=== PATIENT | female | born 1985 | race American Indian/Alaskan Native ===

== ENCOUNTER 2017-01-14 11:32 | Emergency (ER) | payer SELFPAY ==
[2017-01-14 11:42] VITALS: BP 120/87
[2017-01-14] MEDS ORDERED: TORADOL IM ONE (11:54)
--- NOTE | 2017-01-14 12:53 | Emergency Department Report ---
Entered by SHRUTHI CHERY, acting as scribe for DAYANA HENRY PA. ED ENT HPI - General Chief complaint: Dental/Oral Stated complaint: TOOTH EXTRACTION INFECTED Time Seen by Provider: 01/14/17 11:47 Source: patient Mode of arrival: Ambulatory Limitations: No Limitations - History of Present Illness Initial comments: 31 year old female with no significant PMHx presents to the ED c/o tooth #20 pain that began 5 days ago. Patient reports having tooth #20 extracted at a [facility] in [place] over spring. Rates pain a 10/10 in severity. Associated symptoms include mouth pain, but she denies headache, ear pain, numbness, tingling, and gum edema. Reports taking Advil at home with no relief. Uses tobacco products daily and consumes EtOH occasionally. NKDA. complaint: tooth pain (#20 open site (pulled tooth site)) Onset/Timin -: Gradual, days(s) Location: tooth # (20) Severity: moderate Severity scale (0 -10): 10 Quality: aching Consistency: constant Improves with: none Worsens with: none (took Advil with no relief) Context- Dental: other (tooth #20 pulled 1 month ago) Associated Symptoms: toothache (#20 open site (tooth extracted)). denies: fever , gum swelling, sore throat, other (ar pain, headache, chills, nausea, and vomiting) - Related Data Previous Rx's Medication Instructions Recorded Last Taken Type Acetaminophen/Codeine [Tylenol 1 tab PO Q6H PRN #20 tab 01/14/17 Unknown Rx /Codeine # 3 tab] Amoxicillin [Amoxicillin TAB] 875 mg PO BID #20 tablet 01/14/17 Unknown Rx Allergies Allergy/AdvReac Type Severity Reaction Status Date / Time No Known Allergies Allergy Unverified 01/14/17 11:38 ED Dental HPI - General Chief complaint: Dental/Oral Stated complaint: TOOTH EXTRACTION INFECTED Time Seen by Provider: 01/14/17 11:47 Source: patient Mode of arrival: Ambulatory Limitations: No Limitations - History of Present Illness MD complaint: tooth pain (#20, open site where #20 was extracted) Onset/Timin -: Gradual, days(s) Severity: moderate Quality: aching Consistency: constant Improves with: none Worsens with: eating, chewing, movement, other (took Advil with no relief) Context- Dental: other (tooth #20 pulled 1 month ago) Dental Associated Symptons: No: Headache, Earache, Sore Throat, Gum Swelling, Fever - Related Data Previous Rx's Medication Instructions Recorded Last Taken Type Acetaminophen/Codeine [Tylenol 1 tab PO Q6H PRN #20 tab 01/14/17 Unknown Rx /Codeine # 3 tab] Amoxicillin [Amoxicillin TAB] 875 mg PO BID #20 tablet 01/14/17 Unknown Rx Allergies Allergy/AdvReac Type Severity Reaction Status Date / Time No Known Allergies Allergy Unverified 01/14/17 11:38 ED Review of Systems Comment: All other systems reviewed and negative Constitutional: denies: chills, fever, other (tingling) ENT: dental pain (tooth #20 open site where tooth was pulled). denies: ear pain , throat pain, congestion, other (gum swelling, but reports mouth pain due to # 20 tooth pain) Respiratory: no symptoms reported Cardiovascular: denies: chest pain, palpitations, edema, syncope Gastrointestinal: denies: abdominal pain, nausea, vomiting Musculoskeletal: denies: back pain, joint swelling, arthralgia Skin: denies: rash Neurological: denies: headache, numbness ED Past Medical Hx - Past Medical History Previous Medical History?: No - Surgical History Past Surgical History?: No - Family History Family history: hypertension - Social History Smoking Status: Current Every Day Smoker Substance Use Type: Alcohol, Prescribed - Medications Home Medications: Home Medications Medication Instructions Recorded Confirmed Last Taken Type Acetaminophen/Codeine [Tylenol 1 tab PO Q6H PRN #20 tab 01/14/17 Unknown Rx /Codeine # 3 tab] Amoxicillin [Amoxicillin TAB] 875 mg PO BID #20 tablet 01/14/17 Unknown Rx ED Physical Exam - General Limitations: No Limitations General appearance: alert, in no apparent distress - Head Head exam: Present: atraumatic, normocephalic - Eye Eye exam: Present: normal appearance, EOMI Pupils: Present: normal accommodation - ENT ENT exam: Present: normal exam, mucous membranes moist, TM's normal bilaterally (bilateral TM's are pearly pressley), normal external ear exam - Expanded ENT Exam Expanded Ear exam: Present: normal external inspection Mouth exam: Present: normal external inspection. Absent: drooling, trismus, muffled voice, tongue normal, tongue elevation, other (dental abscess) Teeth exam: Present: normal inspection, dental caries (left upper in the back), dental tenderness # (20, open site where #20 was removed). Absent: fractured tooth #, gingival enlargement Throat exam: Positive: normal inspection. Negative: tonsillar erythema, tonsillomegaly, tonsillar exudate, R peritonsillar mass, L peritonsillar mass - Neck Neck exam: Present: normal inspection (supple), full ROM. Absent: tenderness, lymphadenopathy - Respiratory Respiratory exam: Present: normal lung sounds bilaterally. Absent: respiratory distress, wheezes, rales, rhonchi, chest wall tenderness - Cardiovascular Cardiovascular Exam: Present: normal rhythm, bradycardia, normal heart sounds, other (S1/S2). Absent: systolic murmur, diastolic murmur, rubs, gallop - GI/Abdominal GI/Abdominal exam: Present: soft, normal bowel sounds. Absent: distended, tenderness, guarding, rebound, rigid - Extremities Exam Extremities exam: Present: normal inspection, full ROM, normal capillary refill. Absent: tenderness, pedal edema, joint swelling, calf tenderness - Back Exam Back exam: Present: normal inspection, full ROM. Absent: tenderness - Neurological Exam Neurological exam: Present: alert, oriented X3, normal gait, reflexes normal. Absent: motor sensory deficit - Psychiatric Psychiatric exam: Present: normal affect, normal mood - Skin Skin exam: Present: warm, dry, intact. Absent: rash, erythema, abrasion, other (gum edema) ED Course Vital Signs 01/14/17 11:38 Temperature 98 F Pulse Rate 57 L Respiratory 20 Rate Blood Pressure 120/87 O2 Sat by Pulse 100 Oximetry - Reevaluation(s) Reevaluation #1: 01/14/17 12:45 01/14/17 12:48 Given Toradol 60 mg IM and emergency room ED Medical Decision Making - Medical Decision Making ED course: Patient with diagnosis of toothache, dental caries status post tooth #20.. I discussed the patient that she will need to follow back up with her dentist when she goes back to [place]. Patient given Toradol 60 mg IM for toothache. Discussed with her that I'll place her on amoxicillin and Tylenol No. 3 and she will need to follow-up with her dentist back in [facility]. Was understanding of discharge instruction. ED Disposition Clinical Impression: Dental caries, Tooth ache Status post tooth extraction Qualifiers: Tooth loss class: unspecified tooth loss Qualified Code(s): K08.409 - Partial loss of teeth, unspecified cause, unspecified class Disposition: DISCHARGED TO HOME OR SELFCARE Is pt being admited?: No Does the pt Need Aspirin: No Condition: Stable Instructions: Dental Caries (ED), Toothache (ED) Additional Instructions: Follow up with your dentist when you return to [place] for follow-up tooth extraction. Take Antibiotic as prescribed. Prescriptions: Acetaminophen/Codeine [Tylenol /Codeine # 3 tab] 1 tab PO Q6H PRN #20 tab PRN Reason: Toothache Amoxicillin [Amoxicillin TAB] 875 mg PO BID #20 tablet Referrals: Your, Dentist in [place] [Other] - 3-5 Days [facility] [Outside] - 3-5 Days Forms: Work/School Release Form(ED) This documentation as recorded by the MIRI tsai JASMINE,accurately reflects the service I personally performed and the decisions made by ,DAYANA HENRY PA.
== END 2017-01-14 13:00 | disposition home or self-care (01) ==
LOC: ED 11:32
DX: K02.9 Dental caries, unspecified (principal); K08.409 Partial loss of teeth, unspecified cause, unspecified class; F17.200 Nicotine dependence, unspecified, uncomplicated
CPT/HCPCS: 96372; 99282; J1885

== ENCOUNTER 2017-01-16 10:44 | Emergency (ER) | payer SELFPAY ==
[2017-01-16 11:27] VITALS: BP 139/90
--- NOTE | 2017-01-16 11:59 | Emergency Department Report ---
Entered by JARED MANLEY, acting as scribe for RAOUL MEZA NP. Chief Complaint: Dental/Oral Stated Complaint: TOOTH PAIN/NAUSEA Time Seen by Provider: 01/16/17 11:23 - HPI History of Present Illness: 31 y/o female present c/o 03/10, throbbing, intermittent left lower tooth pain that she was treated for 2 days ago. Medication given makes her vomit and puts her to sleep but does not alleviate any of the pain. No fever or diarrhea. LMP . PT concerned for - ROS Review of Systems: +vomit -fever -diarrhea + yeast infection - Exam Vital Signs: Vital Signs 01/16/17 11:23 Temperature 98.4 F Pulse Rate 57 L Respiratory 16 Rate Blood Pressure 139/90 O2 Sat by Pulse 100 Oximetry Physical Exam: PT looks well, non toxic No active vomiting PT with pain at the site of Left lower molar extraction. no abscess noted. MSE screening note: Focused history and physical exam performed. Due to findings the following was ordered: labs ED Disposition for MSE Condition: Stable This documentation as recorded by the scribe,JARED MANLEY,accurately reflects the service I personally performed and the decisions made by ,RAOUL MEZA , RN FACULTY.
[2017-01-16] MEDS ORDERED: MOTRIN PO ONE (12:24)
--- NOTE | 2017-01-16 12:26 | Emergency Department Report ---
ED ENT HPI - General Chief complaint: Dental/Oral Stated complaint: TOOTH PAIN/NAUSEA Time Seen by Provider: 01/16/17 11:23 Source: patient Mode of arrival: Ambulatory Limitations: No Limitations - History of Present Illness Initial comments: 31-year-old -[place] female comes in for toothache. Patient reports that she was seen here on the for toothache she did have the tooth pulled last week now she's complains of toothache that started any better and vomiting with medication. Patient is placed on Tylenol No. 3 and amoxicillin 875 mg for infection. Patient reports that amoxicillin has upset her stomach but she reports after eating it seemed to do much better. She feels that the Tylenol with Codeine is not really resolving her pain as much as she was hoping. She took the Tylenol with codeine she was having vomiting and increased sleepiness. MD complaint: tooth pain Location: tooth # (18) Severity: moderate Severity scale (0 -10): 6 Quality: aching, sharp Consistency: constant Improves with: none Worsens with: none Associated Symptoms: gum swelling - Related Data Previous Rx's Medication Instructions Recorded Last Taken Type Amoxicillin [Amoxicillin TAB] 875 mg PO BID #20 tablet 01/14/17 Unknown Rx Ibuprofen [Motrin 800 MG tab] 800 mg PO Q8HR #30 tablet 01/16/17 Unknown Rx Allergies Allergy/AdvReac Type Severity Reaction Status Date / Time No Known Allergies Allergy Verified 01/16/17 11:28 ED Dental HPI - General Chief complaint: Dental/Oral Stated complaint: TOOTH PAIN/NAUSEA Time Seen by Provider: 01/16/17 11:23 Source: patient Mode of arrival: Ambulatory Limitations: No Limitations - Related Data Previous Rx's Medication Instructions Recorded Last Taken Type Amoxicillin [Amoxicillin TAB] 875 mg PO BID #20 tablet 01/14/17 Unknown Rx Ibuprofen [Motrin 800 MG tab] 800 mg PO Q8HR #30 tablet 01/16/17 Unknown Rx Allergies Allergy/AdvReac Type Severity Reaction Status Date / Time No Known Allergies Allergy Verified 01/16/17 11:28 ED Review of Systems ROS: Stated complaint: TOOTH PAIN/NAUSEA Other details as noted in HPI Constitutional: denies: chills, fever Eyes: denies: eye pain, eye discharge, vision change ENT: dental pain Respiratory: denies: cough, shortness of breath, wheezing Cardiovascular: denies: chest pain, palpitations Gastrointestinal: vomiting ED Past Medical Hx - Past Medical History Previous Medical History?: No Additional medical history: vaginal delivery x 2 - Surgical History Past Surgical History?: No - Social History Smoking Status: Former Smoker Substance Use Type: None - Medications Home Medications: Home Medications Medication Instructions Recorded Confirmed Last Taken Type Amoxicillin [Amoxicillin TAB] 875 mg PO BID #20 tablet 01/14/17 Unknown Rx Ibuprofen [Motrin 800 MG tab] 800 mg PO Q8HR #30 tablet 01/16/17 Unknown Rx ED Physical Exam - General Limitations: No Limitations General appearance: alert - Head Head exam: Present: atraumatic - Eye Eye exam: Present: normal appearance Pupils: Present: normal accommodation - ENT ENT exam: Present: mucous membranes moist - Expanded ENT Exam Expanded Teeth exam: Present: gingival enlargement - Neck Neck exam: Present: normal inspection, full ROM. Absent: lymphadenopathy ED Course Vital Signs 01/16/17 11:23 Temperature 98.4 F Pulse Rate 57 L Respiratory 16 Rate Blood Pressure 139/90 O2 Sat by Pulse 100 Oximetry ED Medical Decision Making - Medical Decision Making I waited by this provider fast track. Discussed the patient to continue with the amoxicillin as prescribed. Discontinue the Tylenol No. 3 I will give her prescription for ibuprofen 800 mg 1 tablet by mouth 3 times a day when necessary with food. Patient verbalized understanding. Critical care attestation.: If time is entered above; I have spent that time in minutes in the direct care of this critically ill patient, excluding procedure time. ED Disposition Clinical Impression: Pain in lower jaw Status post tooth extraction Qualifiers: Tooth loss class: unspecified tooth loss Qualified Code(s): K08.409 - Partial loss of teeth, unspecified cause, unspecified class Disposition: DISCHARGED TO HOME OR SELFCARE Is pt being admited?: No Does the pt Need Aspirin: No Condition: Stable Instructions: Toothache (ED) Additional Instructions: Please continue with the antibiotics as prescribed. Please discontinue the Tylenol No. 3 since is given you an adverse reaction. Please take the Motrin 800 mg one tablet by mouth every 8 hours as needed for pain highly recommend to take this with food. Please follow-up with dentist. Prescriptions: Ibuprofen [Motrin 800 MG tab] 800 mg PO Q8HR #30 tablet Referrals: PRIMARY CARE, [Primary Care Provider] - 3-5 Days Forms: Work/School Release Form(ED)
[2017-01-16 12:32] LABS: Bacteria,Urine 1+ /HPF (Negative); Bilirubin,Urine NEG (Negative); Blood,Urine SM (Negative); Ketones,Urine NEG (Negative); Leukocyte Esterase,Urine NEG (Negative); Nitrite,Urine NEG (Negative); Protein,Urine <15 mg/dL mg/dL (Negative); Urobilinogen,Urine < 2.0 mg/dL (<2.0)
== END 2017-01-16 12:44 | disposition home or self-care (01) ==
LOC: ED 10:44
DX: K08.409 Partial loss of teeth, unspecified cause, unspecified class (principal); K08.89 Other specified disorders of teeth and supporting structures; Z87.891 Personal history of nicotine dependence
CPT/HCPCS: 81001; 81025; 99283

== ENCOUNTER 2018-01-21 08:48 | Emergency (ER) | payer SELFPAY ==
[2018-01-21 09:44] VITALS: BP 106/75
--- NOTE | 2018-01-21 10:21 | Emergency Department Report ---
ED General Adult HPI - General Chief complaint: Upper Respiratory Infection Stated complaint: SHORTNESS OF BREATH Time Seen by Provider: 01/21/18 10:15 Source: patient Mode of arrival: Ambulatory Limitations: No Limitations - History of Present Illness Initial comments: Patient is 32 years old female with no significant past medical history presented to the ER with 2 weeks history of cough, productive with yellowish greenish sputum. Patient denied any history of fever recently she also stated that she had a lot of sinus drainage. Patient denied any nausea or vomiting. - Related Data Previous Rx's Medication Instructions Recorded Last Taken Type Amoxicillin [Amoxicillin TAB] 875 mg PO BID #20 tablet 01/14/17 Unknown Rx Ibuprofen [Motrin 800 MG tab] 800 mg PO Q8HR #30 tablet 01/16/17 Unknown Rx Allergies Allergy/AdvReac Type Severity Reaction Status Date / Time No Known Allergies Allergy Verified 01/16/17 11:28 ED Review of Systems ROS: Stated complaint: SHORTNESS OF BREATH Other details as noted in HPI Comment: All other systems reviewed and negative ENT: throat pain Respiratory: cough, wheezing. denies: shortness of breath, SOB with exertion Cardiovascular: denies: chest pain, palpitations, dyspnea on exertion, orthopnea Gastrointestinal: nausea. denies: abdominal pain, vomiting ED Past Medical Hx - Past Medical History Previous Medical History?: No Additional medical history: vaginal delivery x 2 - Surgical History Past Surgical History?: No - Social History Smoking Status: Never Smoker Substance Use Type: Marijuana - Medications Home Medications: Home Medications Medication Instructions Recorded Confirmed Last Taken Type Amoxicillin [Amoxicillin TAB] 875 mg PO BID #20 tablet 01/14/17 Unknown Rx Ibuprofen [Motrin 800 MG tab] 800 mg PO Q8HR #30 tablet 01/16/17 Unknown Rx ED Physical Exam - General Limitations: No Limitations General appearance: alert, in no apparent distress - Head Head exam: Present: atraumatic, normocephalic, normal inspection - Eye Eye exam: Present: normal appearance, PERRL - ENT ENT exam: Present: normal exam, normal orophraynx - Neck Neck exam: Present: normal inspection, full ROM. Absent: tenderness, meningismus - Respiratory Respiratory exam: Present: wheezes. Absent: normal lung sounds bilaterally, respiratory distress, rales, rhonchi, stridor, accessory muscle use, decreased breath sounds, prolonged expiratory - Cardiovascular Cardiovascular Exam: Present: regular rate, normal rhythm, normal heart sounds ED Course Vital Signs 01/21/18 09:41 Temperature 98.3 F Pulse Rate 78 Respiratory 16 Rate Blood Pressure 106/75 O2 Sat by Pulse 94 Oximetry Critical care attestation.: If time is entered above; I have spent that time in minutes in the direct care of this critically ill patient, excluding procedure time. ED Disposition Clinical Impression: Acute bronchitis Disposition: DC-01 TO HOME OR SELFCARE Is pt being admited?: No Condition: Stable Instructions: Acute Bronchitis (ED) Referrals: PRIMARY CARE, [Primary Care Provider] - 3-5 Days
== END 2018-01-21 10:27 | disposition home or self-care (01) ==
LOC: ED 08:48
DX: J20.9 Acute bronchitis, unspecified (principal); F12.10 Cannabis abuse, uncomplicated
CPT/HCPCS: 99281